=== PATIENT | male | born 1960 ===

== ENCOUNTER 2022-11-19 08:31 | Emergency (ER) | payer BC ==
[2022-11-19] MEDS ORDERED: Ondansetron 4 MG Tab.DIS PO ONE (08:46)
[2022-11-19] MEDS ORDERED: Acetaminophen/HYDROcodone 325-5 MG Tab PO ONE (08:46)
[2022-11-19 10:08] VITALS: BP 135/84; PULSE 72
== END 2022-11-19 10:05 | disposition home or self-care (01) ==
LOC: MW.ED 08:31
DX: S82.64XA Nondisplaced fracture of lateral malleolus of right fibula, initial encounter for closed fracture (principal); Z72.0 Tobacco use; W17.89XA Other fall from one level to another, initial encounter
CPT/HCPCS: 29515; 73610; 99283; A9270; 29125